=== PATIENT | male | born 1985 | race Caucasian/White ===

== ENCOUNTER 2025-07-09 02:08 | Emergency (ER) | payer SELFPAY ==
[2025-07-09] MEDS ORDERED: Cyclobenzaprine 10 MG TAB ONE (04:06)
[2025-07-09] MEDS ORDERED: Acetaminophen 500 MG TAB ONE (04:06)
== END 2025-07-09 05:28 | disposition home or self-care (01) ==
LOC: ERS 02:08
DX: M54.50 Low back pain, unspecified (principal); F17.290 Nicotine dependence, other tobacco product, uncomplicated; Z55.0 Illiteracy and low-level literacy; X50.0XXA Overexertion from strenuous movement or load, initial encounter
CPT/HCPCS: 99282

== ENCOUNTER 2025-07-31 11:31 | Emergency (ER) | payer SELFPAY ==
[2025-07-31] MEDS ORDERED: predniSONE 20 MG TAB ONE (12:35)
== END 2025-07-31 13:57 | disposition home or self-care (01) ==
LOC: ERS 11:31
DX: J45.901 Unspecified asthma with (acute) exacerbation (principal); F17.210 Nicotine dependence, cigarettes, uncomplicated; Z79.51 Long term (current) use of inhaled steroids
CPT/HCPCS: 71046; 87081; 87428; 87430; 94640; J7512